=== PATIENT | male | born 1955 | race Caucasian/White ===

== ENCOUNTER 2021-10-29 23:29 | Emergency (ER) | payer OTHER ==
[~2021-10-29] VITALS: Ht 167.6 cm; Wt 81.7 kg
[~2021-10-29 23:29] MED LIST: Norco 5-325 Ta1 EACH PO; XARELTO15 MG PO
[2021-10-30] MEDS ORDERED: LORCET 5-325 M1 EACH PO (00:24)
[2021-10-30] MEDS ORDERED: DABI150C (00:43)
== END 2021-10-30 00:32 | disposition home or self-care (01) ==
LOC: ER 23:29
DX: I82.4Z1 Acute embolism and thrombosis of unspecified deep veins of right distal lower extremity (principal); F17.210 Nicotine dependence, cigarettes, uncomplicated
CPT/HCPCS: 36415; 99283-25; A9270

== ENCOUNTER 2022-01-02 19:43 | Emergency (ER) | payer OTHER ==
[~2022-01-02] VITALS: Ht 167.6 cm; Wt 74.8 kg
[~2022-01-02 19:43] MED LIST changes: +DABI150C; +LORCET 5-325 M1 EACH PO
== END 2022-01-02 22:11 | disposition home or self-care (01) ==
LOC: ER 19:43
DX: G62.9 Polyneuropathy, unspecified (principal); R20.2 Paresthesia of skin; F17.210 Nicotine dependence, cigarettes, uncomplicated; Z86.718 Personal history of other venous thrombosis and embolism; Z79.899 Other long term (current) drug therapy